=== PATIENT | female | born 1965 | race Hispanic/Latino ===

== ENCOUNTER 2017-01-11 19:28 | Emergency (ER) | payer MEDICAID ==
[2017-01-11 19:44] VITALS: BP 152/91
--- NOTE | 2017-01-11 20:09 | Emergency Department Report ---
Chief Complaint: Headache Stated Complaint: MIGRAINE Time Seen by Provider: 01/11/17 19:58 - HPI History of Present Illness: 52 year old female comes in with with the past medical history of hypotensive COPD migraines and seizures. Patient reports that she had several seizures last night and today. She reports now she has a severe headache for several hours that is progressively getting worse. She admits to nausea and vomiting throbbing headache sensitivity to light and sound. She is wearing her sunglasses. She reports that she normally gets a migraine after seizures. He reports his taken Aleve and Advil and aspirin for headache without much success resolving the pain. - Exam Vital Signs: Vital Signs 01/11/17 19:39 Temperature 98.1 F Pulse Rate 107 H Respiratory 20 Rate Blood Pressure 152/91 O2 Sat by Pulse 97 Oximetry Physical Exam: Alert oriented wearing sunglasses. Holding her head. Cardiovascular tachycardic respiratory clear. She is able to follow directions. MSE screening note: Focused history and physical exam performed. Due to findings the following was ordered: Patient and evaluated by this provider MACHO. We will order a CBC BMP urinalysis CAT scan discussed with Dr. Coon ED Disposition for MACHO Condition: Stable
[2017-01-11 20:30] LABS: Mean Corpuscular HGB Conc 33 % (30-34); Mean Corpuscular Hemoglobin 32 pg (28-32); Mean Corpuscular Volume 97 fl (79-97); Platelet Count 385 K/mm3 (140-440); Red Blood Count 4.34 M/mm3 (3.65-5.03); Red Cell Distribution Width 14.2 % (13.2-15.2); White Blood Count 13.9 K/mm3 (4.5-11.0)
--- NOTE | 2017-01-11 20:39 | Cat Scan Report ---
FINAL REPORT PROCEDURE: CT HEAD/BRAIN WO CON TECHNIQUE: Computerized tomography of the head was performed without contrast material. HISTORY: s/p sz and now severe GORE COMPARISON: Head CT dated November 03, 2015 FINDINGS: The visualized portions of the paranasal sinuses are clear. Mastoid air cells are clear. There is no calvarial fracture. There is no hydrocephalus. No acute intracranial hemorrhage or mass effect is seen. There is no evidence of acute CVA. IMPRESSION: No abnormalities are seen.
[2017-01-11 20:43] LABS: Anion Gap 21 mmol/L; BUN/Creatinine Ratio 23.75; Blood Urea Nitrogen 19 mg/dL (7-17); Carbon Dioxide 22 mmol/L (22-30); Chloride 102.9 mmol/L (98-107); Glucose 162 mg/dL (65-100); Potassium 3.9 mmol/L (3.6-5.0); Sodium 142 mmol/L (137-145)
[2017-01-11 23:00] LABS: Bilirubin,Urine NEG (Negative); Blood,Urine NEG (Negative); Ketones,Urine NEG (Negative); Leukocyte Esterase,Urine TR (Negative); Mucus,Urine FEW /HPF; Nitrite,Urine NEG (Negative); Protein,Urine <15 mg/dL mg/dL (Negative); Urobilinogen,Urine < 2.0 mg/dL (<2.0); WBC,Urine < 1.0 /HPF (0.0-6.0)
== END 2017-01-12 04:19 | disposition left against medical advice (07) ==
LOC: ED 19:28
DX: G43.909 Migraine, unspecified, not intractable, without status migrainosus (principal); R11.2 Nausea with vomiting, unspecified; R51 Headache; Z53.21 Procedure and treatment not carried out due to patient leaving prior to being seen by health care provider
CPT/HCPCS: 36415; 70450; 80048; 80177; 81001; 85027

== ENCOUNTER 2017-06-09 18:21 | Emergency (ER) | payer MEDICAID ==
[2017-06-09 18:43] VITALS: BP 167/100
== END 2017-06-09 20:15 | disposition left against medical advice (07) ==
LOC: ED 18:21
DX: Z53.21 Procedure and treatment not carried out due to patient leaving prior to being seen by health care provider (principal)